=== PATIENT | female | born 1955 | race Caucasian/White ===

== ENCOUNTER 2020-07-19 12:24 | Inpatient (IN) | payer OTHER ==
[~2020-07-19] VITALS: Ht 162.6 cm; Wt 84.4 kg
[2020-07-19 15:01] LABS: BASOPHIL % 0.4 % (0-2); PLATELET COUNT 71 x10^3mcL (130-400); RED CELL DISTRIBUTION WIDTH 15.6 % (11.5-14.5)
[2020-07-19 15:21] LABS: ALKALINE PHOSPHATASE 171 U/L (46-116); ALT/SGPT 61 U/L (14-59); AST/SGOT 84 U/L (15-37); BILIRUBIN TOTAL 1.1 mg/dL (0.20-1.00); CALCIUM 8.5 mg/dL (8.5-10.1); CARBON DIOXIDE 26.4 mmol/L (21-32); CHLORIDE SERUM 104 mmol/L (98-107); CREATININE SERUM 0.7 mg/dL (0.6-1.0); GFR1 > 60 mL/min; GLUCOSE SERUM 169 mg/dL (74-106); POTASSIUM SERUM 3.7 mmol/L (3.5-5.1); SODIUM SERUM 139 mmol/L (136-145); TOTAL PROTEIN, SERUM 7.8 g/dL (6.4-8.2)
[2020-07-19] MEDS ORDERED: PANTOPRAZOLE SO40 M1 PO (15:56)
[2020-07-19] MEDS ORDERED: CELEXA10 MG PO (15:57)
[2020-07-19] MEDS ORDERED: KRISTALOSE20 GM PO (15:57)
[2020-07-19] MEDS ORDERED: BUSPIRONE (15:57)
[2020-07-19] MEDS ORDERED: PAM10 PO (15:58)
[2020-07-19] MEDS ORDERED: ZESTRIL5 MG PO (15:58)
[2020-07-19 17:27] VITALS: BP 159/79
[2020-07-19 17:35] VITALS: Ht 162.6 cm; Wt 84.4 kg
[2020-07-19 19:53] VITALS: BP 143/79
[2020-07-20 04:52] VITALS: BP 136/68
[2020-07-20 09:24] VITALS: BP 116/62
[2020-07-20 09:45] LABS: BASOPHIL % 0.5 % (0-2)
[2020-07-20 09:50] LABS: PLATELET COUNT 83 x10^3mcL (130-400); RED CELL DISTRIBUTION WIDTH 15.9 % (11.5-14.5)
[2020-07-20 13:11] VITALS: BP 126/76
[2020-07-20 16:33] VITALS: BP 126/76
== END 2020-07-20 17:11 | disposition home or self-care (01) | DRG 280 ==
LOC: ED 12:24 → MU 15:21 → DU 15:21 → MU 17:21 → DU 19:41
PROVIDERS: Emergency Medicine; ADMIT Internal Medicine; ATTEND Internal Medicine
DX: K70.30 Alcoholic cirrhosis of liver without ascites (principal); E66.9 Obesity, unspecified; F32.9 Major depressive disorder, single episode, unspecified; G47.00 Insomnia, unspecified; I10 Essential (primary) hypertension; Z88.5 Allergy status to narcotic agent; Z79.899 Other long term (current) drug therapy; Z68.26 Body mass index [BMI] 26.0-26.9, adult
CPT/HCPCS: C9113; G0378; J0696; J2354; J2405; J7030; Q0092